=== PATIENT | male | born 1950 | race Two or more races ===

== ENCOUNTER 2019-05-03 13:18 | Inpatient (IN) | payer OTHER ==
[~2019-05-03] VITALS: Ht 167.6 cm; Wt 68.0 kg
[2019-05-03] MEDS ORDERED: ADVIL PO (14:19)
[2019-05-03] MEDS ORDERED: ALEVE220 MG (15:16)
[2019-05-07] MEDS ORDERED: ADVIL100 MG (09:01)
[2019-05-09] MEDS ORDERED: ELIQUIS2.5 MG PO (15:58)
[2019-05-09] MEDS ORDERED: PERCOCET 5-3251 EACH PO (15:58)
[2019-05-09] MEDS ORDERED: DUI500 PO (15:58)
[2019-05-10] MEDS ORDERED: PERCOCET 5-3251 EACH PO (08:12)
[2019-05-10] MEDS ORDERED: ELIQUIS2.5 MG PO (08:12)
[2019-05-10] MEDS ORDERED: CEFADROXIL500 MG PO (08:12)
== END 2019-05-11 15:02 | disposition home or self-care (01) | DRG 470 ==
LOC: SURH 05-07 06:30 → O/R 05-07 06:30 → SURH 05-07 12:30
PROVIDERS: ADMIT Orthopaedic Surgery
PROC: 0MNP0ZZ Release Left Knee Bursa and Ligament, Open Approach (ICD-10-PCS; 2019-05-07)
PROC: 0SRD0J9 Replacement of Left Knee Joint with Synthetic Substitute, Cemented, Open Approach (ICD-10-PCS; principal; 2019-05-07 12:30)
DX: M17.12 Unilateral primary osteoarthritis, left knee (principal); D62 Acute posthemorrhagic anemia; M21.162 Varus deformity, not elsewhere classified, left knee; M81.0 Age-related osteoporosis without current pathological fracture; F43.29 Adjustment disorder with other symptoms